=== PATIENT | female | born 1995 | race Caucasian/White ===

== ENCOUNTER 2018-04-15 10:56 | Emergency (ER) ==
[2018-04-15 11:04] VITALS: BP 121/76; TEMP 97.2; BMI 20.7
--- NOTE | 2018-04-15 11:06 | ED.PDOC ---
General ED Provider: Dr. TAJ PASCUAL Chief Complaint: Non-specific Complaint Stated Complaint: Jaw Pain. 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 This morning after showering and preparing for physicians apt to eval bruising of her legs, she developed recurrent jaw pain with pain. Could not reduce the dislocation and experienced persistent pain. Referred here by her PCP Dr Powell. Time Seen by Physician: 11:10 Mode of Arrival: Walk-In Information Source: Patient Primary Care Provider: TAJ MARLEY Referred to ED by: PCP Nursing and Triage Documentation Reviewed and Agree: Yes Reviewed sepsis parameters & appropriate labs ordered?: Yes System Inflammatory Response Syndrome: Not Applicable Sepsis Protocol: For patient's 13 years and over: Temp is 96.8 and below OR 101 and greater Pulse >90 BPM Resp >20/minute Acutely Altered Mental Status Are patient's symptoms suggestive of a new infection, such as: -Pneumonia -Skin, Soft Tissue -Endocarditis -UTI -Bone, Joint Infection -Implantable Device -Acute Abdominal Infection -Wound Infection -Meningitis -Blood Stream Catheter Infection -Unknown System Inflammatory Response Syndrome: Not Applicable Review of Systems - Review Of Systems Constitutional: Reports: No symptoms Eyes: Reports: No symptoms Ears, Nose, Mouth, Throat: Reports: No symptoms Respiratory: Reports: No symptoms Cardiac: Reports: No symptoms GI: Reports: No symptoms : Reports: No symptoms Musculoskeletal: Reports: No symptoms, Other (Bilateral TMJ disloctation ; tenderness and spasm of [place] MM) Skin: Reports: No symptoms Neurological: Reports: Anxiety Endocrine: Reports: No symptoms Hematologic/Lymphatic: Reports: No symptoms All Other Systems: Reviewed and Negative Past Medical History - Past Medical History Previously Healthy: Yes Endocrine: Reports: None Cardiovascular: Reports: None Respiratory: Reports: None Hematological: Reports: None Gastrointestinal: Reports: None Genitourinary: Reports: None Neuro/Psych: Reports: None Musculoskeletal: Reports: Other (TMJ ) Cancer: Reports: None Last Menstrual Period: [id number] - Surgical History General Surgical History: Reports: None - Family History Family History: Reports: None - Social History Smoking Status: Never smoker Hx Substance Use: No Alcohol Screening: None - Immunizations Tetanus Shot up to Date: No Physical Exam - Physical Exam Appearance: Well-appearing, No pain distress, Well-nourished Ill-appearing: None Pain Distress: Moderate Eyes: TIMA, EOMI, Conjunctiva clear ENT: Ears normal, Nose normal, Oropharynx normal (difficulty with closing mouth. pain over TMJ bilat with inability to close mouth) Respiratory: Airway patent, Breath sounds clear, Breath sounds equal, Respirations nonlabored Cardiovascular: RRR, Pulses normal, No rub, No murmur GI/: Soft, Nontender, No masses, Bowel sounds normal, No Organomegaly Musculoskeletal: Normal strength, ROM intact, No edema, No calf tenderness Skin: Warm, Dry, Normal color Neurological: Sensation intact, Motor intact, Reflexes intact, Cranial nerves intact, Alert, Oriented Psychiatric: Affect appropriate, Mood appropriate Interpretation - Radiology Interpretation Radiology Interpretation By: Radiologist Radiology Results: Positive Xray Comments: Bilat ant TMJ dislocation Procedures - Joint Reduction Indications: Present: Dislocation Joint Reduction Site: Other (TMJ-bilateral anterior dislocation) Conscious Sedation: No (administered IV lorazepam and .5 mg dilaudid) Nerve Block Used: No Reduction Attempts: 2 (patient awake and cooperative) Pre-Procedure NV Exam: Yes Post Joint Reduction Film: Not done Critical Care Note - Critical Care Note Total Time (mins): 60 (Monitored patient status and airway) Course - Course Hematology/Chemistry: 04/15/18 11:45 04/15/18 11:45 Vital Signs: Temp Pulse Resp BP Pulse Ox 04/15/18 11:01 97.2 F L 101 H 16 121/76 98 Departure - Departure Time of Disposition: 13:15 Disposition: HOME SELF-CARE Discharge Problem: TMJ (dislocation of temporomandibular joint) Instructions: Temporomandibular Disorder (ED) Condition: Good Pt referred to PMD for follow-up: Yes (Dr Marley) IPMP verified?: No Additional Instructions: Avoid Opening mouth widely Seek follow up care with Oral Surgeon Take Ibuprofen 200mg 1-2 every 6 hrs for relief of pain Allergies/Adverse Reactions: Allergies No Known Drug Allergies Adverse Reaction (Verified 04/15/18 11:04) Home Medications: Ambulatory Orders 1 [No Reported Medications] 07/23/14 Disposition Discussed With: Patient
[2018-04-15] MEDS ORDERED: BENADRYL IVP STA (11:32)
[2018-04-15] MEDS ORDERED: ATIVAN IVP STA (12:19)
[2018-04-15] MEDS ORDERED: DILAUDID IVP STA (12:28)
--- NOTE | 2018-04-15 12:49 | CT ---
EXAM: CT of the maxillofacial region without contrast History: Jaw pain. Technique: Multiplanar CT images through the maxillofacial region were obtained without the administ ration of IV contrast Findings: Orbits are intact. The visualized intracranial contents demonstrate no acute findings. S urrounding soft tissues demonstrate no acute abnormality. The bilateral temporomandibular joints are dislocated anteriorly. No fractures. Paranasal sinuses and mastoid air cells are clear. Nasal sep leyla is bowed to the left. Bilateral ostiomeatal units are not occluded. Impression: Anteriorly dislocated bilateral temporomandibular joints. No fractures.
== END 2018-04-15 13:51 | disposition home or self-care (01) ==
LOC: ED 10:56
DX: M26.609 Unspecified temporomandibular joint disorder, unspecified side (principal); S03.03XA Dislocation of jaw, bilateral, initial encounter
CPT/HCPCS: 36415; 80053; 84703; 85025; 96375; 99283

== ENCOUNTER 2018-06-09 17:29 | Outpatient (CLI) ==
--- NOTE | 2018-06-10 09:20 | DI ---
EXAM: Chest two views HISTORY: Cough, bronchitis COMPARISON: None TECHNIQUE: Two views of the chest were performed FINDINGS: The lungs are clear. There is no pleural effusion or pneumothorax. The heart is normal i n size. The mediastinal contour is normal. There are no acute abnormalities of the bones. IMPRESSION: No acute cardiopulmonary process.
--- NOTE | 2018-06-10 09:29 | DI ---
EXAM: Lumbar spine radiographs. HISTORY: Right sciatica. COMPARISON: None available. TECHNIQUE: 5 views of the lumbar spine. FINDINGS: The normal curvature and alignment are maintained. Vertebral body and intervertebral disc heights are normal. No fracture or subluxation identified. Sacral arcuate lines are intact. Soft tissues are unremarkable. IMPRESSION: No acute abnormality of the lumbar spine.
== END 2018-06-09 17:30 | disposition home or self-care (01) ==
LOC: RAD 17:29
PROVIDERS: ATTEND Family Medicine
DX: M54.31 Sciatica, right side (principal); J40 Bronchitis, not specified as acute or chronic

== ENCOUNTER 2018-06-30 09:20 | Outpatient (CLI) ==
--- NOTE | 2018-07-01 04:52 | MRI ---
EXAM: Lumbar spine MRI without contrast. HISTORY: Acute low back pain. COMPARISON: Lumbar spine radiographs 06/09/2018 and chest radiographs 06/09/2018. TECHNIQUE: Multiplanar, multisequence MR images were acquired lumbar spine without contrast. FINDINGS: Conus medullaris ends low at L2-3 and has normal morphology and signal intensity. Transit ional spinal anatomy is present at the thoracolumbar junction. The last normal rib-bearing vertebra with a 12 classic paired ribs is called T12. At L1, there are hypoplastic ribs bilaterally or unusua l articulating transverse processes. Given this numbering, there are five lumbar-type vertebra. S1 i s a transitional vertebra with a rudimentary intervertebral disc and pseudoarticulations between the first and second sacral segments. These findings are concordant with the comparison chest and lumbar spine radiographs. The lumbar vertebra are normal in height, AP alignment and intrinsic bone marrow signal. There is 1.5 mL retrolisthesis of L5 on S1 in the superior endplate of S1 is smaller than t he inferior endplate of L5. The partially visualized liver, spleen and kidneys are unremarkable. There are no paravertebral mass es. L1-2, L2-3, L3-4, L4-5: The intervertebral discs are normal. There is no central canal stenosis or foraminal stenosis. L5-S1: There is a minor posterior disc bulge and a small central disc protrusion that minimally effac es the ventral thecal sac. Minor heterogeneous modic type 1 and type 2 endplate changes are present a long the anterior endplates. There is no central canal stenosis or foraminal stenosis. IMPRESSION: 1. Transitional spinal anatomy. 2. Minor posterior disc bulge and small central disc protrusion L5-S1.
== END 2018-06-30 09:21 | disposition home or self-care (01) ==
LOC: RAD 09:20
PROVIDERS: ATTEND Family Medicine
DX: M54.40 Lumbago with sciatica, unspecified side (principal)